=== PATIENT | male | born 1955 | race Caucasian/White ===

== ENCOUNTER 2017-08-14 11:10 | Outpatient (CLI) | payer OTHER | END 2017-08-14 11:11 | disposition short-term general hospital (02) | LOC: EMS 11:10 | PROVIDERS: ATTEND Surgery | DX: S06.9X1A Unspecified intracranial injury with loss of consciousness of 30 minutes or less, initial encounter (principal); R41.82 Altered mental status, unspecified; R09.89 Other specified symptoms and signs involving the circulatory and respiratory systems; S79.912A Unspecified injury of left hip, initial encounter; W17.89XA Other fall from one level to another, initial encounter; Y93.35 Activity, hang gliding; Y92.89 Other specified places as the place of occurrence of the external cause ==

== ENCOUNTER 2018-09-19 11:12 | Emergency (ER) | payer OTHER ==
--- NOTE | 2018-09-19 12:15 | XRAY Report ---
Reason: lacerations to ring and pinky finger Procedure Date: 09/19/2018 Accession Number: [id number] / [id number] Procedure: XR - Finger(s) RT CPT Code: FULL RESULT: EXAM: RIGHT FOURTH AND FIFTH DIGIT RADIOGRAPHY EXAM DATE: 09/19/2018 12:04 PM. CLINICAL HISTORY: Lacerations to ring and pinky finger. COMPARISON: None. TECHNIQUE: 3 views. FINDINGS: Overlying bandage material obscures fine soft tissue and bone detail. Bones: No fracture or traumatic osseous defect is detected. Joints: No subluxation is seen. Soft Tissues: The known soft tissue injury is not definitely visualized. No definite radiopaque foreign body is detected with the aforementioned limitations. IMPRESSION: No fracture or dislocation. RADIA
[2018-09-19] MEDS ORDERED: LIDOCAINE 2% 10 ML MDV SUBQ STA (12:52)
--- NOTE | 2018-09-19 13:28 | ED Physician Documentation ---
PD HPI UPPER EXT INJURY - Stated complaint Stated Complaint: R HAND LAC - Chief complaint Chief Complaint: Laceration - History obtained from History obtained from: Patient - History of Present Illness Location: Right, Hand, Finger (4th and 5th) Type of injury: Laceration Timing - onset: How many hours ago (1) Timing - details: Abrupt onset Pain level max: 4 Improved by: Rest, Immobilization Worsened by: Moving, Palpating Associated symptoms: No: Weakness, Numbness, Tingling, Swelling Contributing factors: No: Anticoagulated - Additonal information Additional information: Patient sustained lacerations to the fourth and fifth digits of the right hand from a model airplane propeller. Patient is right-handed. Last tetanus was last year. Review of Systems Constitutional: denies: Fever, Chills GI: denies: Vomiting, Diarrhea Skin: denies: Rash Musculoskeletal: denies: Neck pain, Back pain Neurologic: denies: Headache PD PAST MEDICAL HISTORY - Past Medical History Past Medical History: No - Past Surgical History Past Surgical History: Yes - Present Medications Home Medications: Ambulatory Orders Medication Instructions Recorded Confirmed Aspirin 325 mg ORAL DAILY 09/29/15 09/30/15 - Allergies Allergies/Adverse Reactions: Allergies Allergy/AdvReac Type Severity Reaction Status Date / Time Iodine and Iodide Containing Allergy Rash Verified 09/19/18 11:32 Produc - Social History Does the pt smoke?: No Smoking Status: Never smoker Does the pt drink ETOH?: Yes Does the pt have substance abuse?: No - Immunizations Immunizations are current?: Yes - POLST Patient has POLST: No PD ED PE NORMAL - Vitals Vital signs reviewed: Yes - General General: Alert and oriented X 3, No acute distress - HEENT HEENT: Moist mucous membranes - Neck Neck: Supple, no meningeal sign - Cardiac Cardiac: RRR - Respiratory Respiratory: No respiratory distress, Clear bilaterally - Derm Derm: Warm and dry - Neuro Neuro: Alert and oriented X 3 PD ED PE EXPANDED - Extremities JEN UE/Hands Visual: 1 - laceration (linear, 5cm. NVI. tendon intact) 2 - laceration (linear 3 cm. NVI. tendon intact. multiple small superficial lacerations surround this.) Results - Vitals Vitals: Vital Signs - 24 hr 09/19/18 11:26 Temperature 36.8 C Heart Rate 74 Respiratory 18 Rate Blood Pressure 132/84 H O2 Saturation 97 Oxygen O2 Source Room air Procedures - Laceration (location) R 4th digit Length in cm: 5 Wound type: Linear, Into muscle, Clean Neurovascular status: Sensory intact, Motor intact, Vascular intact Tendon involvement: Tendon intact Anesthesia: Lidocaine 2% Wound Preparation: Wound explored, To the base. No: FB identified, FB removed Skin layer closure: Nylon, Interrupted, Size #-0 - enter number (4) Other: Patient tolerated well, No complications, Neurovascular intact, Dressing applied, Tetanus UTD Complexity: Simple R 5th digit Length in cm: 3 Wound type: Linear, Into subcut fat Neurovascular status: Sensory intact, Motor intact, Vascular intact Tendon involvement: Tendon intact Anesthesia: Lidocaine 2% Wound Preparation: Wound explored, To the base. No: FB identified, FB removed Skin layer closure: Nylon, Interrupted, Size #-0 - enter number (4) Other: Patient tolerated well, No complications, Neurovascular intact, Dressing applied, Tetanus UTD Complexity: Simple PD MEDICAL DECISION MAKING - ED course Complexity details: considered differential, d/w patient ED course: Patient with multiple lacerations to the right hand. These were repaired. The smaller superficial abrasions and lacerations were repaired with Dermabond. Placed in finger splints for comfort and will use these for the next 2 to 3 days. Sutures will be removed in approximately 2 weeks. Warnings of infection and instructions on wound care given at bedside. Also counseled on how to minimize scarring. Patient counseled regarding signs and symptoms for which I believe and urgent re-evaluation would be necessary. Patient with good understanding of and agreement to plan and is comfortable going home at this time This document was made in part using voice recognition software. While efforts are made to proofread this document, sound alike and grammatical errors may occur. Tetanus is up-to-date Departure - Departure Disposition: 01 Home, Self Care Clinical Impression: Finger laceration Qualifiers: Encounter type: initial encounter Finger: unspecified finger Damage to nail status: without damage Foreign body presence: without foreign body Laterality: right Qualified Code(s): S61.219A - Laceration without foreign body of unspecified finger without damage to nail, initial encounter Condition: Good Instructions: ED Laceration Hand Follow-Up: Anita Nolan ARNP [Primary Care Provider] - Comments: Wear the splint for the next 2 to 3 days just to help heal the area. Return if you worsen. Keep the wound clean and dry. The sutures should be removed in approximately 10 to 14 days with your doctor. Return if you notice redness, swelling or drainage from the wound.
[2018-09-19 13:37] VITALS: BP 116/86
== END 2018-09-19 13:58 | disposition home or self-care (01) ==
LOC: ED 11:12
DX: S61.214A Laceration without foreign body of right ring finger without damage to nail, initial encounter (principal); S61.216A Laceration without foreign body of right little finger without damage to nail, initial encounter; S60.416A Abrasion of right little finger, initial encounter; W26.8XXA Contact with other sharp object(s), not elsewhere classified, initial encounter; Z79.82 Long term (current) use of aspirin
CPT/HCPCS: 12004; 73140; 99283

== ENCOUNTER 2021-01-23 06:50 | Day surgery (SDC) | payer MEDICARE, OTHER ==
[2021-01-23] MEDS ORDERED: PROPOFOL 500 MG/50 ML 500 MG/50 ML VIAL ONE (07:09)
[2021-01-23] MEDS ORDERED: LACTATED RINGERS 1,000 ML IV ONE (07:24)
--- NOTE | 2021-01-23 07:51 | ANESTHESIA ---
Pre-Anesthesia VS, & Labs - Diagnosis hx of polyps - Procedure colonoscopy Vital Signs: Temp Pulse Resp BP Pulse Ox 36.9 C 94 18 143/84 H 96 01/23/21 07:05 01/23/21 07:05 01/23/21 07:05 01/23/21 07:05 01/23/21 07:05 Height: 5 ft 10 in Weight (kg): 64.7 kg Body Mass Index: 20.5 BMI Classification: Healthy weight - NPO >8 hours Home Medications and Allergies Home Medications: Ambulatory Orders Lisinopril [Zestril] 20 mg PO DAILY 01/22/21 Multivitamin 1 each PO DAILY 01/22/21 Aspirin 325 mg ORAL DAILY 09/29/15 Lisinopril [Zestril] 20 mg PO DAILY 01/22/21 Multivitamin 1 each PO DAILY 01/22/21 Allergies/Adverse Reactions: Allergies Allergy/AdvReac Type Severity Reaction Status Date / Time Iodine and Iodide Containing Allergy Rash Verified 09/19/18 11:32 Produc Anes History & Medical History - Anesthetic History Anesthesia Complications: reports: No previous complications Family history of Anesthesia Complications: Denies Family history of Malignant Hyperthermia: Denies - Medical History Cardiovascular: reports: Hypertension Smoking Status: Never smoker - Surgical History General: reports: Colonoscopy Exam General: Alert, Oriented x3, Cooperative Dental: WNL Mouth Openin Fingerbreadth Neck Mobility: Normal Mallampati classification: II Thyromental Distance: 4-6 cm Respiratory: Lungs clear Cardiovascular: Regular rate Plan Anesthesia Type: Total IV Consent for Procedure(s) Verified and Reviewed: Yes Code Status: Attempt Resuscitation ASA classification: 2-Mild systemic disease Is this case an emergency?: No
[2021-01-23] MEDS ORDERED: MIDAZOLAM 2 MG/2 ML VIAL ONE (08:21)
--- NOTE | 2021-01-23 08:46 | HISTORY & PHYSICAL EXAMINATION ---
Chief Complaint - Chief Complaint Chief Complaint: history of colon polyp History of Present Illness - History Obtained From Records Reviewed: yes History obtained from: pt Exam Limitations: none - History of Present Illness HPI Comment/Other: History of colon polyp and incomplete colonoscopy 2012. History - Past Medical History Cardiovascular: reports: Hypertension MRSA Hx?: No - Past Surgical History General: reports: Colonoscopy - POLST Patient has POLST: No Meds/Allgy - Home Medications Home Medications: Ambulatory Orders Medication Instructions Recorded Confirmed Aspirin 325 mg ORAL DAILY 09/29/15 01/22/21 Lisinopril [Zestril] 20 mg PO DAILY 01/22/21 01/22/21 Multivitamin 1 each PO DAILY 01/22/21 01/22/21 - Allergies Allergies/Adverse Reactions: Allergies Allergy/AdvReac Type Severity Reaction Status Date / Time Iodine and Iodide Containing Allergy Rash Verified 09/19/18 11:32 Produc Review of Systems - Other Findings Other Findings: 10 pt ros as above otherwise unremarkable Exam - Vital Signs Reviewed Vital Signs: Yes Vital Signs: Vital Signs x48h Temp Pulse Resp BP Pulse Ox 01/23/21 07:05 36.9 C 94 18 143/84 H 96 - Physical Exam General Appearance: positive: No acute distress, Alert Eyes Bilateral: positive: PERRL, EOMI ENT: positive: No signs of dehydration Neck: positive: No JVD Respiratory: positive: No respiratory distress, Breath sounds nml Cardiovascular: positive: Regular rate & rhythm Abdomen: positive: Non-tender, No distention Neurologic/Psychiatric: positive: Oriented x3 Conclusion/Plan - Problem List (1) History of adenomatous polyp of colon Conclusion/Plan: plan colonoscopy. parq held and consent obtained
[2021-01-23] MEDS ORDERED: LACTATED RINGERS 100 ML IV ONE (09:41)
[2021-01-23 10:16] VITALS: BP 121/79
--- NOTE | 2021-01-23 15:05 | ANESTHESIA POST OP EVALUATION ---
Anesthesia Post Eval - Post Anesthesia Eval Vitals: Last Vital Signs Temp 37 C 01/23/21 10:15 Pulse 69 01/23/21 10:15 Resp 16 01/23/21 10:15 BP 121/79 01/23/21 10:15 Pulse Ox 96 01/23/21 10:15 CV Function Including HR & BP: Stable Pain Control: Satisfactory Nausea & Vomiting: Negative Mental Status: Baseline Respiratory Status: Airway Patent Hydration Status: Satisfactory Anesthesia Complications: None
== END 2021-01-23 06:51 | disposition home or self-care (01) ==
LOC: SDS 06:50
PROVIDERS: ATTEND Surgery
PROC: 0DBH8ZZ Excision of Cecum, Via Natural or Artificial Opening Endoscopic (ICD-10-PCS; 2021-01-23)
PROC: 0DBN8ZZ Excision of Sigmoid Colon, Via Natural or Artificial Opening Endoscopic (ICD-10-PCS; 2021-01-23)
PROC: 0DBN8ZZ Excision of Sigmoid Colon, Via Natural or Artificial Opening Endoscopic (ICD-10-PCS; principal; 2021-01-23 08:30)
DX: Z12.11 Encounter for screening for malignant neoplasm of colon (principal); D12.0 Benign neoplasm of cecum; K63.5 Polyp of colon; K57.30 Diverticulosis of large intestine without perforation or abscess without bleeding; K63.89 Other specified diseases of intestine; I10 Essential (primary) hypertension
CPT/HCPCS: 45380; 45384; 45385; J7120